=== PATIENT | female | born 1995 | race Caucasian/White ===

== ENCOUNTER 2017-08-24 13:42 | Emergency (ER) | payer OTHER ==
[~2017-08-24] VITALS: Ht 172.7 cm; Wt 104.3 kg
[2017-08-24 15:07] VITALS: BP 129/78
[2017-08-24] MEDS ORDERED: KETOROLAC TROMETH 60MG/2ML VIAL IM ONE (16:00)
== END 2017-08-24 17:29 | disposition home or self-care (01) ==
LOC: ER 13:42
DX: S83.92XA Sprain of unspecified site of left knee, initial encounter (principal); J45.909 Unspecified asthma, uncomplicated; W18.39XA Other fall on same level, initial encounter; Y93.89 Activity, other specified; Y92.89 Other specified places as the place of occurrence of the external cause; Y99.8 Other external cause status
CPT/HCPCS: 73562; 96372; 99284; J1885

== ENCOUNTER 2020-03-10 21:08 | Emergency (ER) | payer MEDICAID, OTHER ==
[~2020-03-10] VITALS: Ht 170.2 cm; Wt 97.7 kg
[2020-03-10 21:21] VITALS: BP 120/70
[2020-03-10] MEDS ORDERED: KETOROLAC TROMETH 60MG/2ML VIAL IM ONE (23:15)
== END 2020-03-11 00:12 | disposition home or self-care (01) ==
LOC: ER 21:08
DX: J06.9 Acute upper respiratory infection, unspecified (principal); J02.9 Acute pharyngitis, unspecified
CPT/HCPCS: 87070; 87804; 87880; 96372; 99283; J1885

== ENCOUNTER 2023-09-20 23:24 | Emergency (ER) | payer MEDICAID ==
[~2023-09-20] VITALS: Ht 170.2 cm; Wt 95.5 kg
[2023-09-20] MEDS ORDERED: OFL50TS OT (23:59)
[2023-09-20] MEDS ORDERED: PRED20TA2 PO (23:59)
[2023-09-20] MEDS ORDERED: CLIN150C18 PO (23:59)
[2023-09-20] MEDS ORDERED: IBUP1TAB5 PO (23:59)
[2023-09-20] MEDS ORDERED: BENZLOZ2 MT (23:59)
[2023-09-21] MEDS: DexAMETHasone SOD PHOS 10MG/1ML VIAL INJ IM ONE (00:43)
[2023-09-21] MEDS: cefTRIAXone SOD 1,000 MG VL IM ONE (00:44)
[2023-09-21] MEDS: IBUPROFEN 800 MG TAB PO ONE (00:44)
[2023-09-21] MEDS: LIDOCAINE VISCOUS 2% 15ML UD MT ONE (00:44)
[2023-09-21 00:45] VITALS: BP 121/83; PULSE 71; RESP 16; TEMP 98; O2SAT 99
== END 2023-09-21 00:52 | disposition home or self-care (01) ==
LOC: ER 23:24
DX: J03.90 Acute tonsillitis, unspecified (principal); H60.93 Unspecified otitis externa, bilateral
CPT/HCPCS: 96372; 99284; J0696; J1100

== ENCOUNTER 2023-12-09 09:37 | Emergency (ER) | payer MEDICAID ==
[~2023-12-09] VITALS: Ht 170.2 cm; Wt 120.7 kg
[~2023-12-09 09:37] MED LIST: BENZLOZ2 MT; CLIN150C18 PO; IBUP1TAB5 PO; OFL50TS OT; PRED20TA2 PO
[2023-12-09 09:57] VITALS: BP 125/91; PULSE 67; TEMP 98.4
[2023-12-09] MEDS ORDERED: ALBUAER3 IN (10:54)
[2023-12-09] MEDS ORDERED: PRED20TA2 PO (10:54)
[2023-12-09] MEDS ORDERED: AZIT-43 PO (10:54)
[2023-12-09] MEDS: DexAMETHasone SOD PHOS 10MG/1ML VIAL INJ IM ONE (10:56)
[2023-12-09] MEDS: IPRATROPIUM BROM 0.5 MG/2.5ML INH SOL NEB ONE (11:01)
[2023-12-09] MEDS: ALBUTEROL SULF 2.5 MG/0.5ML(0.5%) NEB SOLN NEB ONE (11:01)
[2023-12-09 11:02] VITALS: RESP 22; O2SAT 95
== END 2023-12-09 11:11 | disposition home or self-care (01) ==
LOC: ER 09:37
DX: J20.9 Acute bronchitis, unspecified (principal); R06.2 Wheezing; R42 Dizziness and giddiness
CPT/HCPCS: 71046; 94640; 96372; 99283; J1100; J7644